=== PATIENT | female | born 1975 ===

== ENCOUNTER 2017-12-14 09:43 | Emergency (ER) | payer OTHER, SELFPAY ==
[2017-12-14 09:44] VITALS: BMI 22.6
[2017-12-14 09:52] VITALS: BP 128/85; PULSE 89; RESP 18; TEMP 98.4; O2SAT 100
--- NOTE | 2017-12-14 10:15 | C.PDOC ---
History Of Present Illness 42 y/o female presents to the ED complaining of back pain near the thoracic and trapezius regions since yesterday. Denies any associated fall or blunt trauma. No weakness, numbness, tingling, or urinary symptoms. 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 Reports she took Motrin yesterday with temporary relief. Patient also states she is interested in follow up regarding her pmhx of cervical cancer. Time Seen by Provider: 12/14/17 10:06 Chief Complaint (Nursing): Back Pain History Per: Patient History/Exam Limitations: no limitations Onset/Duration Of Symptoms: Days Current Symptoms Are (Timing): Still Present Past Medical History Reviewed: Historical Data, Nursing Documentation, Vital Signs Vital Signs: Last Vital Signs Temp 98.4 F 12/14/17 09:49 Pulse 89 12/14/17 09:49 Resp 18 12/14/17 09:49 BP 128/85 12/14/17 09:49 Pulse Ox 100 12/14/17 10:55 - Medical History PMH: HTN, Malignancy (cervical cancer: post hysterectomy 2013) Denies: Chronic Kidney Disease - [facility] Procedures ESOPHAGOGASTRODUODENOSCOPY [EGD] W/CLOSED BIOPSY (12/30/14) EXCISION OF STOMACH, ENDO, DIAGN (09/02/16) OTHER AND UNSPECIFIED RADICAL ABDOMINAL HYSTERECTOMY (10/26/13) RAD NODE DISSECTION NEC (10/26/13) Family History: States: Unknown Family Hx - Social History Hx Tobacco Use: No Hx Alcohol Use: No Hx Substance Use: No - Immunization History Hx Tetanus Toxoid Vaccination: No Hx Influenza Vaccination: No Hx Pneumococcal Vaccination: No Review Of Systems Except As Marked, All Systems Reviewed And Found Negative. Genitourinary: Negative for: Dysuria, Incontinence, Hematuria Musculoskeletal: Positive for: Back Pain Neurological: Negative for: Weakness, Numbness Physical Exam - Physical Exam Appears: Non-toxic, No Acute Distress Skin: Normal Color, Warm, Dry Head: Atraumatic, Normacephalic Eye(s): bilateral: Normal Inspection, PERRL, EOMI Neck: Normal ROM Chest: Symmetrical, No Tenderness Back: No Vertebral Tenderness, Paraspinal Tenderness (at the thoracic and lumbar regions), No Straight Leg Raising Extremity: Bilateral: Atraumatic, Normal Color And Temperature Neurological/Psych: Oriented x3 Gait: Steady ED Course And Treatment O2 Sat by Pulse Oximetry: 100 (RA) Pulse Ox Interpretation: Normal Medical Decision Making Medical Decision Making: Impression: Muscular strain - works moving boxes Plan: Patient given PO Motrin 600mg x1 in the ED. Stable for d/c home. LOW susp of recurrent metastatic CA- h/o cervical CA lost to f/u- refer to our [facility]. Disposition Doctor Will See Patient In The: Office Counseled Patient/Family Regarding: Studies Performed, Diagnosis - Disposition Referrals: [facility] [Outside] [facility] [Outside] Disposition: HOME/ ROUTINE Disposition Time: 10:15 Condition: GOOD Additional Instructions: ibuprofeno 400-600 mg cada 6 horas [place] necessario [place] 1/2 hora por hora en la [place] tratamientos/elva calientes Sigue en las Clinica par alexy cuidados Gynocolgicos con histora de Cancer Instructions: Muscle Strain (DC) Forms: [facility] (Arabic), Work Excuse Print Language: RUSSIAN - POA Present On Arrival: None - Clinical Impression Clinical Impression: Thoracic back sprain - Scribe Statement The provider has reviewed the documentation as recorded by the Scribe (Gissel Kenney) Provider Attestation: All medical record entries made by the Scribe were at my direction and personally dictated by me. I have reviewed the chart and agree that the record accurately reflects my personal performance of the history, physical exam, medical decision making, and the department course for this patient. I have also personally directed, reviewed, and agree with the discharge instructions and disposition.
== END 2017-12-14 10:19 | disposition home or self-care (01) ==
LOC: C.ER 09:43
DX: S23.3XXA Sprain of ligaments of thoracic spine, initial encounter (principal); X50.0XXA Overexertion from strenuous movement or load, initial encounter; Y92.89 Other specified places as the place of occurrence of the external cause; Y99.8 Other external cause status